=== PATIENT | male | born 1945 | race Caucasian/White ===

== ENCOUNTER 2018-08-25 10:05 | Emergency (ER) | payer BC, MEDICARE ==
[~2018-08-25] VITALS: Ht 182.9 cm; Wt 91.6 kg
[~2018-08-25 10:05] MED LIST: ASPIRIN81 M3 PO; Z COREG PO; Z.0.EFFIENT10 MG PO; Z.0.LIPITOR40 MG PO; Z.0.LISINOPRIL5 MG PO; Z.0.TYLENOL PM EX-1 PO
[2018-08-25] MEDS ORDERED: ALBUTEROL/IPRATROPIUM 3 ML NEB NEB ONE (10:30)
--- NOTE | 2018-08-25 10:38 | Diagnostic Imaging Report ---
EXAMINATION: PA and lateral views of the chest. COMPARISON: None CLINICAL HISTORY: Flulike symptoms DISCUSSION: Lines/tubes: None. Lungs: Lingular opacity likely atelectasis. No consolidative pneumonia. Pleura: No pleural effusion or pneumothorax. Heart and mediastinum: The cardiomediastinal silhouette is normal. Bones and soft tissues: No acute bony abnormalities. IMPRESSION: No consolidative pneumonia Signed by: Dr. Leif Chambers M.D. on 08/25/2018 10:34 AM
== END 2018-08-25 11:00 | disposition home or self-care (01) ==
LOC: FSED 10:05
DX: R05 Cough (principal); J20.9 Acute bronchitis, unspecified; J30.2 Other seasonal allergic rhinitis; I10 Essential (primary) hypertension
CPT/HCPCS: 71046; 99284

== ENCOUNTER 2018-12-19 13:44 | Inpatient (IN) | payer MEDICARE ==
[~2018-12-19] VITALS: Ht 182.9 cm; Wt 91.9 kg
--- OUTSIDE RECORDS SUMMARY | 2018-12-19 13:48 | XMS REPORT ---
Author [facility] Address Unknown Phone Unavailable Care Team Providers Care Resident Care Assistant Name Role Phone Carter KENNEDY Unavailable Unavailable Problems This patient has no known problems. Allergies, Adverse Reactions, Alerts This patient has no known allergies or adverse reactions. Medications This patient has no known medications. Results Test Description Test Time Test Comments Text Results Atomic Results Result Comments [facility] 2018-08-25 10:33:00 [place] [address] Patient Name: DARRION ZUÑIGA MR #: [id number] : 1945 Age/Sex: 72/M Req #: [id number] Adm Physician: Ordered by: LEANNE KENNEDY MD Report #: [id number] Location: [facility] Room/Bed: Procedure: [id number] HOPD/CXR 2 VIEW - [facility] Exam Date: 08/25/18 Exam Time: 1022 REPORT STATUS: Signed EXAMINATION: PA and lateral views of the chest. COMPARISON: None CLINICAL HISTORY: Flulike symptoms DISCUSSION: Lines/tubes: None. Lungs: Lingular opacity likely atelectasis. No consolidative pneumonia. Pleura: No pleural effusion or pneumothorax. Heart and mediastinum: The cardiomediastinal silhouette is normal. Bones and soft tissues: No acute bony abnormalities. IMPRESSION: No consolidative pneumonia Signed by: Dr. Massiel Wheeler M.D. on 08/25/2018 10:34 AM Dictated By: MASSIEL WHEELER MD 1034 Transcribed By: ZEKE on 08/25/18 1034 COPY TO: LEANNE KENNEDY MD
--- OUTSIDE RECORDS SUMMARY | 2018-12-19 13:48 | XMS REPORT | Encounter Summary ---
Author Organization Unknown Address [address] [place] [address] Phone [phone] Care Team Providers Care Piecer Name Role Phone Jimmie Greenwood MD 3 [phone] Zi Cano MD 82 [phone] Reason for Visit upper respiratory symptoms Instructions 1. Immunization refused 2. Body mass index 25-29 - overweight learning about healthy weight 3. Acute bronchitis Levaquin 500 mg tablet Discussion Note: None recorded. Plan of Care Patient Instructions meds as directed continue inh/tessalon perles Reminders Provider Appointments None recorded. Lab None recorded. Referral None recorded. Procedures None recorded. Surgeries None recorded. Imaging None recorded. Medications Name Start Date atorvastatin 40 mg tablet TAKE 1 TABLET BY MOUTH EVERY DAY DIRECTED Bystolic 5 mg tablet Take 1 tablet every day by oral route as directed for 90 days. fluticasone propionate 50 mcg/actuation nasal spray,suspension [place] 2 sprays every day by nasal route. Levaquin 500 mg tablet Take 1 tablet every 24 hours by oral route. prednisone 20 mg tablet Take 1 tablet every day by oral route. ProAir HFA 90 mcg/actuation aerosol inhaler Inhale 2 puffs every day by inhalation route as needed for 16 days. SB Low Dose ASA EC 81 mg tablet,delayed release Take 1 tablet every day by oral route. Medications Administered None recorded. Vitals Height Weight BMI Blood Pressure 6 ft 202.6 lbs 27.5 kg/m2 138/88 mm[Hg] Lab Results None recorded. Allergies Code Code System Name Reaction Severity Status Onset NKDA Problems Name Status Onset Date Source Hyperlipidemia Active 01/02/2017 Benign Essential Hypertension Active 01/02/2017 History of Myocardial Infarction Active 01/02/2017 Procedures Date Name Performed by 10/27/2011 Colonoscopy Information not available 10/26/1973 Vasectomy Information not available 05/28/1972 Hernia Repair Information not available 05/28/1958 Appendectomy Information not available Vaccine List Vaccine Type influenza, high dose seasonal 03/06/2017 02/25/2018 influenza, injectable, quadrivalent 05/28/2015 Pneumococcal Conjugate, unspecified formulation 12/01/2011 zoster 01/01/2015 Social History Smoking Status Never Smoker Past Encounters 08/29/2018 Immunization Refused; Body Mass Index 25-29 - Overweight; Acute Bronchitis Jimmie Greenwood MD: [id number] [place] [address], Ph. History of Present Illness Note:f/u acute bronchitis,initial eval 10 d ago at [facility] rx im steroid/z pack
further eval 08/25 rx breathing tx /po prednisone-neg cxr
good response without complete remission,
c/o green mucoid productive cough Review of Systems:ROS as noted in the HPI Review of Systems None recorded. Physical Exam Upper Respiratory Infection Exam Comprehensive Reported By: Patient Constitutional: General Appearance in no acute distress Skin: Inspection and palpation: no rash, no lesions, no ulcer, good turgor, no jaundice Head: Sinuses no tenderness Eyes: Pupils EOM intact, PERRLA, conjunctiva non-injected Ears: Right External auditory canal normal appearance, no obstruction, no erythema, no discharge. Left External auditory canal normal appearance, no obstruction, no erythema, no discharge. Right Tympanic membrane mobile with pneumatic otoscopy, pearly maher, landmarks clear. Left Tympanic membrane: mobile with pneumatic otoscopy, pearly maher, landmarks clear Nose: Nasal Skin: no lesion, no lacerations. Nasal Mucosa normal, pink and moist Oral Cavity/Mouth: Lips, teeth, gums normal lips, normal gums. Oral Mucosa: normal, moist, no lesions. Palate: normal hard palate, normal soft palate. Tongue: normal tongue, no lesion, no edema. Tonsils: normal tonsils, no lesions. Posterior pharynx: normal Lymph Nodes: Cervical no palpable lymph node enlargement, no submandibular adenopathy, no posterior cervical adenopathy, no anterior cervical adenopathy, no supraclavicular adenopathy Neck: Neck symmetrical, trachea midline Lungs: Respiratory effort unlabored. Auscultation breath sounds normal, no wheezing, no rales / crackles, no rhonchi Cardiovascular System: Auscultation regular rate and rhythm, no murmur, no rubs, no gallops. Observation/Palpation of peripheral vascular system no varicosities, carotid pulse normal, no edema
[2018-12-19] MEDS ORDERED: BYSTOLIC10 MG PO (14:04)
[2018-12-19] MEDS ORDERED: SODIUM CHLORIDE 0.9% 500ML 500 ML IV STA (14:07)
[2018-12-19] MEDS ORDERED: ONDANSETRON HCL INJ 2MG/ML 2ML 2 MG/ML VIAL IV ONE (14:15)
[2018-12-19] MEDS ORDERED: MORPHINE SULFATE INJ 4 MG/ML INJ 1ML IV NR (14:15)
[2018-12-19] MEDS ORDERED: IOPAMIDOL 370 MG/ML 200 ML INFUS..BTL INJ ONE (14:15)
[2018-12-19] MEDS ORDERED: FAMOTIDINE 20 MG/2 ML VIAL IV ONE ×2 (14:15→14:23)
[2018-12-19] MEDS ORDERED: DIATRIZOATE MEGL/DIATRIZOA SOD 30 ML BTL PO ONE (14:16)
[2018-12-19] MEDS ORDERED: ONDANSETRON HCL INJ 2MG/ML 2ML 2 MG/ML VIAL ONE (14:23)
[2018-12-19] MEDS ORDERED: SODIUM CHLORIDE 0.9% 500ML 500 ML ONE (14:23)
[2018-12-19] MEDS ORDERED: MORPHINE SULFATE INJ 4 MG/ML INJ 1ML ONE (14:23)
--- NOTE | 2018-12-19 14:30 | NUR ---
Pt became pale and diaphoretic after morphine was administered and his blood pressure dropped to 95/66. Pt felt like he was going to pass out. Pt sitting in chair and oxygen administered. Fluids bolused in and pt feeling better as fluids were administered.
--- NOTE | 2018-12-19 16:29 | Diagnostic Imaging Report ---
CT of the abdomen and pelvis, with contrast, 12/19/2018. History: Upper abdominal pain. Comparison: None available. Technique: Multidetector CT scanning of the abdomen and pelvis was performed from the level of the lung bases to the inferior pubic rami after intravenous and oral administration of contrast. Coronal and sagittal multiplanar reformations were obtained. RADIATION DOSE: Total DLP: 823 mGy*cm Dose modulation, iterative reconstruction, and/or weight based adjustment of the mA/kV was utilized to reduce the radiation dose to as low as reasonably achievable. Discussion: LUNG BASES: There is bibasilar atelectasis. ABDOMEN: A left parapelvic renal cyst is noted. The liver, gallbladder, biliary tree, spleen, pancreas, adrenal glands, and kidneys are otherwise normal. The hepatic vein, portal vein, and splenic vein are patent. The abdominal aorta is within normal limits for size. There are dilatation of the proximal small bowel measuring up to 4.1 cm, with a transition point in the right abdomen, best seen on coronal image 58. The distal small bowel is nondilated. The appendix is not visualized. Multiple diverticuli are present within the descending and sigmoid colon without evidence of adjacent inflammation.. There is no evidence of adenopathy or free fluid. PELVIS: The bladder is unremarkable. The prostate is prominent measuring 5.2 cm in transverse diameter. Calcified phleboliths are present bilaterally. There is no evidence of free fluid or adenopathy. BONES AND SOFT TISSUES: Degenerative changes are present throughout the lumbar spine without evidence of lytic or sclerotic lesion. IMPRESSION: 1. Small bowel obstruction with transition point in the right abdomen, previously secondary to adhesions from prior appendectomy. The findings were discussed with Dr. Rosado at 1625 on 12/19/2018. 2. Colonic diverticulosis without evidence of diverticulitis. Signed by: Gabe Goode on 12/19/2018 4:26 PM
[2018-12-19] MEDS: D5.45%NS/KCL 20MEQ 1,000 ML IV SCH (16:48)
[2018-12-19] MEDS ORDERED: ENALAPRILAT IV INJ 1.25 MG/ML VIAL IV PRN (17:00)
[2018-12-19] MEDS ORDERED: HYDROMORPHONE 1MG/1ML INJ IV PRN (17:00)
[2018-12-19] MEDS ORDERED: PROMETHAZINE 12.5MG/ NACL 0.9% 12.5 MG/50 ML BAG IV PRN (17:00)
[2018-12-19] MEDS ORDERED: DIPHENHYDRAMINE HCL INJ 50 MG/ML VIAL IV PRN (17:00)
[2018-12-19] MEDS: FAMOTIDINE 20 MG/2 ML VIAL IV SCH (17:47)
--- NOTE | 2018-12-19 17:48 | NUR ---
Pt refusing an NG tube until he is admitted to the hospital, pt does not want an NG tube unless it is absolutely necessary.
[2018-12-19] MEDS ORDERED: SODIUM CHLORIDE 0.9% 1000ML 1,000 ML IV STA (18:24)
[2018-12-19] MEDS ORDERED: DIPHENHYDRAMINE HCL INJ 50 MG/ML VIAL ONE (18:28)
[2018-12-19] MEDS ORDERED: SODIUM CHLORIDE 0.9% 1000ML 1,000 ML ONE (18:29)
[2018-12-19] MEDS ORDERED: FENTANYL CITRATE/PF 100MCG/2 ML INJ IV ONE (18:30)
--- NOTE | 2018-12-19 18:58 | NUR ---
report to RAMOS Kathleen
--- NOTE | 2018-12-19 20:05 | NUR ---
REPORT CALLED TO ELIN VICKERS B/P 157/100 HR 59 SPO2 100% PT DENIES AIN, NS INFUSING AT 125 CC/HR.
--- NOTE | 2018-12-19 20:20 | NUR ---
report given to EMS, pt statble at time of transfer.
[2018-12-19 21:00] VITALS: BP 173/85
[2018-12-19] MEDS: SODIUM CHLORIDE 0.9% 250ML IRRIG IR SCH (21:00)
--- NOTE | 2018-12-19 21:30 | NUR ---
Pt received from ER. Pt A&O and in no apparent distress. Pt on room air and no tele. All safety measures ensured and pt call [facility] near.
[2018-12-19 21:45] VITALS: BP 173/85
--- NOTE | 2018-12-19 21:50 | NUR ---
Dr. Dilip lópez
[2018-12-19] MEDS ORDERED: SODIUM CHLORIDE 0.9% 1000ML 1,000 ML IV ONE (22:15)
[2018-12-20] VITALS (8 sets, daily range): BP systolic 121–137; BP diastolic 67–79
[2018-12-20] MEDS: D5.45%NS/KCL 20MEQ 1,000 ML IV SCH ×3 (00:48→16:36)
[2018-12-20] MEDS: SODIUM CHLORIDE 0.9% 250ML IRRIG IR SCH ×5 (01:00→16:36)
[2018-12-20 05:04] LABS: BASOPHILS % 0.3 % (0.0-1.0); EOSINOPHILS # (AUTO) 0.1 (0.0-0.4); EOSINOPHILS % 1.1 % (0.0-6.0); HEMATOCRIT 46.8 % (38.2-49.6); HEMOGLOBIN 16.2 g/dL (14.0-18.0); LYMPHOCYTES # (AUTO) 1.3 (1.0-3.2); LYMPHOCYTES % 11.5 % (18.0-39.1); MEAN CORPUSCULAR HEMOGLOBIN 31.4 pg (28-32); MEAN CORPUSCULAR HGB CONC 34.6 g/dL (31-35); MEAN CORPUSCULAR VOLUME 90.7 fL (81-99); MONOCYTES # (AUTO) 1.1 (0.2-0.8); MONOCYTES % 9.3 % (4.4-11.3); NEUTROPHILS # (AUTO) 8.8 (2.1-6.9); NEUTROPHILS % 77.4 % (38.7-80.0); PLATELET COUNT 138 x10e3/uL (140-360); RED BLOOD COUNT 5.16 x10e6/uL (4.3-5.7); RED CELL DISTRIBUTION WIDTH 12.5 % (11.7-14.4)
[2018-12-20 05:37] LABS: ANION GAP 13.1 mmol/L (8-16); BLOOD UREA NITROGEN 16 mg/dL (7-26); BUN/CREATININE RATIO 21 (6-25); CALCIUM 8.9 mg/dL (8.4-10.2); CARBON DIOXIDE 22 mmol/L (22-29); CHLORIDE 109 mmol/L (98-107); CREATININE, SERUM 0.77 mg/dL (0.72-1.25); EST GLOMERULAR FILTRATION RATE > 60 ML/MIN (60-); GLUCOSE 117 mg/dL (74-118); POTASSIUM 4.1 mmol/L (3.5-5.1); SODIUM 140 mmol/L (136-145)
--- NOTE | 2018-12-20 06:21 | NUR ---
Call placed to Dr. Cano's office for consult. Dr. Osborne covering and informed MD of consult.
--- NOTE | 2018-12-20 07:00 | NUR ---
BEDSIDE SHIFT REPORT RECEIVED FROM ALEE BEASLEY. PT DENIES NEEDS AT THIS TIME.
--- NOTE | 2018-12-20 07:39 | NUR ---
Bedside report and walking rounds complete with day shift RN
[2018-12-20 08:00] LABS: LYMPHOCYTES % (MANUAL) 12 % (19-48); MONOCYTES % (MANUAL) 10 % (3.4-9.0); NEUTROPHILS % (MANUAL) 78 % (40-74); PLATELET ESTIMATE SLIGHTLY DECREASED; PLATELET MORPHOLOGY COMMENT FEW EDTA CLUMPING; RBC MORPHOLOGY COMMENT NORMAL
--- NOTE | 2018-12-20 08:52 | Diagnostic Imaging Report ---
EXAMINATION: ABDOMEN ACUTE SERIES W/PA CXR INDICATION: Small bowel obstruction COMPARISON: CT abdomen and pelvis of 12/19/2018 FINDINGS: TUBES and LINES: None. LUNGS: The lung volumes are normal. No focal consolidation or pulmonary edema. Mild subsegmental atelectasis at the left mid lung. PLEURA: No pleural effusion or pneumothorax. HEART AND MEDIASTINUM: The cardiomediastinal silhouette is normal in size and contour. BONES AND SOFT TISSUES: No acute fracture or dislocation. UPPER ABDOMEN: Again seen are multiple loops of air-filled dilated small bowel measuring up to 4.6 cm in diameter. There are now also air-filled loops of nondilated colon, which was decompressed on the prior CT. No free air. No abnormal calcifications. Degenerative changes of the visualized spine. IMPRESSION: Redemonstration of multiple loops of air-filled dilated small bowel measuring up to 4.6 cm consistent with known small bowel obstruction seen on 12/19/2018. There is now air in the colon and rectum which were previously decompressed. Signed by: India Henderson MD on 12/20/2018 8:49 AM
[2018-12-20] MEDS: FAMOTIDINE 20 MG/2 ML VIAL IV SCH ×2 (09:15→16:37)
--- NOTE | 2018-12-20 13:44 | History and Physical ---
CHIEF COMPLAINT: The patient is a 73-year-old male with a history of pain in the abdomen. HISTORY OF PRESENTING ILLNESS: This is Mr. Leonel Zuñiga, who has a history of extensive surgery in the abdomen, started to have upper abdominal pain and also periumbilical pain. The pain was described as 10/10, suddenly after eating at a local restaurant, the patient thought he had food poisoning and cramping got worse, abdominal pain got worse. The patient came into the ED, was found to have a questionable SBO and admitted for small-bowel obstruction. PAST SURGICAL HISTORY: History of double hernia repairs, two times appendectomy in the past. Heart catheterization and prior abdominal surgeries as noted. PAST MEDICAL HISTORY: Include history of coronary artery disease, history of hypertension, history of hyperlipidemia and history of ND in the past, seen by Dr. Cano. ALLERGIES: NO DRUG ALLERGIES. SOCIAL HISTORY: No EtOH. No IV drug abuse. 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 FAMILY HISTORY: Noncontributory. MEDICATIONS: He takes at home are acetaminophen, aspirin, atorvastatin 40 mg, nebivolol 10 mg and Effient 10 mg daily. PHYSICAL EXAMINATION: HEENT: Normocephalic, atraumatic. Pupils are reactive to light and accommodation. CVS: S1 and S2 normal. Regular rate and rhythm. ABDOMEN: Nontender, nondistended. Bowel sounds are positive. EXTREMITIES: No clubbing, no cyanosis, no edema. LABORATORY VALUES: White count is slightly elevated at 11.31. No left shift present. Chemistry; sodium 140, potassium 4.1, BUN 16, creatinine 0.77. IMAGING STUDIES: Abdominal CT shows small bowel obstruction with transition point at the right abdomen, colonic diverticulosis without evidence of diverticulitis. ASSESSMENT: Small-bowel obstruction. The patient seems to be better today. No NG tube has been advanced. The patient is n.p.o. The patient is to be continued n.p.o. KUB will be done today. Labs to be followed. The patient is having a bowel movement already, feeling better. Possible discharge tonight or in the morning. Further recommendation per clinical course. Dr. Bautista Marie has already seen the patient. Additional diagnoses include history of ND, history of coronary artery disease, history of hyperlipidemia. We will hold off on medications until the patient's bowel sounds are better and after KUB. Further recommendation per clinical course. MD EVERETT Metzger/JOCELYNE /[id number]
--- NOTE | 2018-12-20 20:12 | Consultation ---
DATE OF CONSULTATION: Cardiology Consultation HISTORY OF PRESENT ILLNESS: This is a 73-year-old man with a history of coronary artery disease, status post myocardial infarction and intervention, hypertension, hyperlipidemia, who presented to the emergency department with abdominal pain. The patient states that it was in the central near his umbilicus, described as cramping, severe in intensity, occurred after eating. The patient arrived to the emergency department, was found to have possible small-bowel obstruction. We have been consulted for possible surgical intervention. He denies any chest pain, shortness of breath, palpitations, or near syncope. REVIEW OF SYSTEMS: A 12-point review of system was conducted, and is negative except as stated above in the HPI. PAST SURGICAL HISTORY: Hernia repair, appendectomy, cardiac catheterization. PAST MEDICAL HISTORY: Coronary artery disease, myocardial infarction. PAST FAMILY HISTORY: No premature CAD or sudden cardiac . ALLERGIES: NO DRUG ALLERGIES. SOCIAL HISTORY: No illicit drug, alcohol, or tobacco use. FAMILY HISTORY: Noncontributory as stated above. MEDICATIONS: See medications reconciliation form. PHYSICAL EXAMINATION: VITAL SIGNS: Temperature is 96, heart rate is 86, respirations 19, blood pressure is 121/74, oxygen saturation 98% on room air. GENERAL: Well appearing, well built, no apparent distress. CARDIOVASCULAR: Regular rate and rhythm. LUNGS: Clear to auscultation. ABDOMEN: Soft, nontender, nondistended. EXTREMITIES: No edema. VASCULAR : 2+ pulses. SKIN: Warm, dry and intact. NEUROLOGIC: No focal deficits noted. Cranial nerves are grossly intact. PSYCHIATRIC: Normal mood and affect. LABORATORY DATA: Reviewed. Recent testing in our clinic within normal limits, normal ejection fraction. IMPRESSION: 1. Possible small bowel obstruction. 2. Hypertension. 3. Coronary artery disease. 4. Hyperlipidemia. RECOMMENDATIONS: The patient is currently asymptomatic from a cardiovascular standpoint. Recent testing within our clinic was within normal limits. Continue home cardiovascular medications when he can take oral medications. If any surgical intervention is needed, he may proceed. DO SHAYE Montenegro/MODL /[id number]
[2018-12-20] MEDS: NEBIVOLOL 10 MG TAB PO SCH (20:42)
[2018-12-21 00:21] VITALS: BP 149/78
[2018-12-21] MEDS: D5.45%NS/KCL 20MEQ 1,000 ML IV SCH ×2 (01:31→08:48)
[2018-12-21 04:14] VITALS: BP 116/70
[2018-12-21 05:25] LABS: BASOPHILS % 0.2 % (0.0-1.0); EOSINOPHILS # (AUTO) 0.2 (0.0-0.4); EOSINOPHILS % 2.2 % (0.0-6.0); HEMATOCRIT 45.8 % (38.2-49.6); HEMOGLOBIN 15.5 g/dL (14.0-18.0); LYMPHOCYTES # (AUTO) 0.9 (1.0-3.2); LYMPHOCYTES % 8.9 % (18.0-39.1); MEAN CORPUSCULAR HGB CONC 33.8 g/dL (31-35); MEAN CORPUSCULAR VOLUME 91.6 fL (81-99); MONOCYTES # (AUTO) 0.9 (0.2-0.8); MONOCYTES % 9.5 % (4.4-11.3); NEUTROPHILS # (AUTO) 7.6 (2.1-6.9); PLATELET COUNT 137 x10e3/uL (140-360); RED CELL DISTRIBUTION WIDTH 12.4 % (11.7-14.4)
--- NOTE | 2018-12-21 07:00 | Diagnostic Imaging Report ---
EXAM: Abdomen 4 radiographs INDICATION: ^sbo ^[id number] ^[id number] COMPARISON: Abdominal x-ray dated 12/20/2018 FINDINGS: Persistent obstructive bowel gas pattern. No definite evidence of pneumoperitoneum. Lungs are clear. No focal consolidation. Normal cardiac silhouette. No pleural effusion or pneumothorax. No acute osseous abnormality. Pelvic phleboliths. IMPRESSION: Persistent obstructive bowel gas pattern. Signed by: Dr. Дмитрий Barnes MD on 12/21/2018 6:57 AM
--- NOTE | 2018-12-21 07:10 | NUR ---
RCD PT AT BED PT IS ALERT AND ORIENTED RESTING ON BED NO SIGNS OF ANY DISTRESS NOTED IV PATENT FAMILY AT BED SIDE BED LOW AND LOCKED CALL LIGHT IN REACH
--- NOTE | 2018-12-21 07:38 | Progress Note ---
DATE: SUBJECTIVE: The patient comes in with small bowel obstruction, asymptomatic at this time, tolerated clear liquid twice. No chest pains. No shortness of breath. Positive for gas. No BMs. OBJECTIVE: VITAL SIGNS: Temperature is 98.0, pulse of 84, respirations of 16, blood pressure is 116/70, pulse oximetry of 97% on room air. HEENT: Normocephalic, atraumatic. Pupils are reactive to light and accommodation. CVS: S1, S2 normal. Regular rate and rhythm. ABDOMEN: Positive for bowel sounds. Nondistended, nontender. EXTREMITIES: No clubbing, no cyanosis, no edema. IMAGING STUDIES: From yesterday did show some multiple loops of air-filled dilated small bowel measuring up to 4.6, consistent with small bowel obstruction. ASSESSMENT AND PLAN: The patient, however, is asymptomatic awaiting a small-bowel series today with a progression of his symptoms and also feeling better. Possible discharge today depending upon the abdominal series today. Further recommendation per clinical course. We will continue to monitor the patient. Other diagnosis include coronary artery disease, history of myocardial infarction and history of hypertension and hyperlipidemia. We will continue with medications at this time. MD EVERETT Metzger/MODL /[id number]
[2018-12-21 08:01] VITALS: BP 125/76
[2018-12-21 09:00] VITALS: BP 125/76
[2018-12-21] MEDS: NEBIVOLOL 10 MG TAB PO SCH (09:00)
[2018-12-21] MEDS: FAMOTIDINE 20 MG/2 ML VIAL IV SCH (09:00)
--- NOTE | 2018-12-21 11:00 | NUR ---
PT REQUESTED TO EAT PAGED DR GUZMAN GET THE DIET ORDER
--- NOTE | 2018-12-21 11:40 | NUR ---
DR GUZMAN RETURNED THE CALL HE SAID HE COMING TO SEE THE PT
[2018-12-21] MEDS ORDERED: CIPRO500 MG PO (13:39)
--- NOTE | 2018-12-21 14:03 | NUR ---
PT WENT HOME IN SAFE CONDITION WITH HIS
== END 2018-12-21 14:03 | disposition home or self-care (01) | DRG 390 ==
LOC: FSED 13:44 → ERHOLD 16:52 → CMPBEDREQ 20:23 → MED/SURG2 20:37
PROVIDERS: ADMIT Family Medicine; ATTEND Family Medicine
PROC: 0D9670Z Drainage of Stomach with Drainage Device, Via Natural or Artificial Opening (ICD-10-PCS; principal; 2018-12-19)
DX: K56.50 Intestinal adhesions [bands], unspecified as to partial versus complete obstruction (principal); I25.10 Atherosclerotic heart disease of native coronary artery without angina pectoris; I10 Essential (primary) hypertension; E78.5 Hyperlipidemia, unspecified; I25.2 Old myocardial infarction; Z79.02 Long term (current) use of antithrombotics/antiplatelets; Z79.82 Long term (current) use of aspirin
CPT/HCPCS: 36415; 74022; 74177; 80048; 80076; 81003; 85025; 96374; 96375; 99282; J1170; J1200; J2270; J2405; J3010; J7030; J7040; Q9967

== ENCOUNTER → 2019-11-07 | Day surgery (SDC) | payer MEDICARE, OTHER ==
[2019-11-03 10:22] LABS: BASOPHILS % 0.4 % (0.0-1.0); EOSINOPHILS # (AUTO) 0.2 (0.0-0.4); EOSINOPHILS % 2.5 % (0.0-6.0); HEMATOCRIT 46.6 % (38.2-49.6); HEMOGLOBIN 15.9 g/dL (14.0-18.0); LYMPHOCYTES % 25.1 % (18.0-39.1); MEAN CORPUSCULAR HEMOGLOBIN 30.9 pg (28-32); MEAN CORPUSCULAR HGB CONC 34.1 g/dL (31-35); MEAN CORPUSCULAR VOLUME 90.5 fL (81-99); MONOCYTES # (AUTO) 0.7 (0.2-0.8); MONOCYTES % 8.7 % (4.4-11.3); NEUTROPHILS # (AUTO) 5.1 (2.1-6.9); NEUTROPHILS % 62.9 % (38.7-80.0); PLATELET COUNT 144 x10e3/uL (140-360); RED BLOOD COUNT 5.15 x10e6/uL (4.3-5.7); RED CELL DISTRIBUTION WIDTH 12.6 % (11.7-14.4)
[2019-11-03 10:44] LABS: ALANINE AMINOTRANSFERASE 37 IU/L (0-55); ALBUMIN 4.1 g/dL (3.5-5.0); ALBUMIN/GLOBULIN RATIO 1.5 (0.8-2.0); ALKALINE PHOSPHATASE 99 IU/L (40-150); ANION GAP 12.7 mmol/L (8-16); BLOOD UREA NITROGEN 14 mg/dL (7-26); BUN/CREATININE RATIO 15 (6-25); CALCIUM 9.4 mg/dL (8.4-10.2); CARBON DIOXIDE 23 mmol/L (22-29); CHLORIDE 111 mmol/L (98-107); CREATININE, SERUM 0.96 mg/dL (0.72-1.25); EST GLOMERULAR FILTRATION RATE > 60 ML/MIN (60-); GLUCOSE 104 mg/dL (74-118); POTASSIUM 4.7 mmol/L (3.5-5.1); SODIUM 142 mmol/L (136-145)
[~2019-11-07] VITALS: Ht 182.9 cm; Wt 91.6 kg
[~2019-11-07] MED LIST changes: +ACETAMINOPHEN1 EACH PO; +ALPRAZOLAM 0.5 MG TAB ONE; +BYSTOLIC10 MG PO; +CIPRO500 MG PO; +DIPHENHYDRAMINE HCL 25 MG CAP ONE; +FENTANYL CITRATE/PF 100MCG/2 ML INJ ONE; +HEPARIN SOD/SOD CHLORIDE 1,000 ML ONE; +IOPAMIDOL 370 MG/ML 200 ML INFUS..BTL INJ ONE; +LIDOCAINE HCL 2% LOCAL 20 ML VIAL ONE; +MIDAZOLAM HCL 2 MG/2 ML VIAL ONE; +SODIUM CHLORIDE 0.9% 1000ML 1,000 ML ONE
[2019-11-07 09:45] VITALS: BP 143/80
--- NOTE | 2019-11-07 12:00 | NUR ---
1200pt in CCL Rm #9, prepped for procedure. Alert oriented and appropriate, PERRLA, respirations even and unlabored to room air. Pulses x4 extremities equal Pedal pulses PT/DP Rt PT doppler all other palpable and marked. Cap fill brisk < 3 sec. bilateral feet semi cool and pale. Skin warm and dry integrity appears intact in general. IV left forarm x1 started and presents healthy w/o s/s of infiltration or complaint. Abdomen soft and supple. pt offered toileting, denies need to urinate or defecate. Personal affects with patient. Family at bedside. Pt and family verbalizes understanding of POC. Pre-Op Meds benadryl and xanax given at 1335 bed low and locked, side rails up x2 and call light at side. -naa/rn
--- NOTE | 2019-11-07 13:00 | NUR ---
1300 Prepped and ready Handoff report Demarcus BEASLEY ds/rn
--- NOTE | 2019-11-07 14:50 | NUR ---
1450p UNDERWRITING ASSISTANT POST RECEIVING NOTE:Received pt to room #9,bedside report received from Fitz BEASLEY. Alert oriented and appropriate, PERRLA, respirations even and unlabored to room air. Pulses x4 extremities equal and strong. Pedal pulses PT/DP X4 and marked. Cap fill brisk < 3 sec. Rt radial approach with TR band No gross issues pain,pallor, pressure or dysrhythmia.Decrease TR band at 1530p dc home at 1600pm. Skin warm and dry integrity appears D/I. IV 20g to left forearm #20x1 . Presents healthy w/o s/s of infiltration or complaint. Abdomen soft and supple. pt offered toileting, denies need to urinate or defecate. No personal affects with patient. Family at BS. Pt and family verbalizes understanding of POC. Currently w/o complaint of pain or need.ds/rn
[2019-11-07 14:52] VITALS: BP 120/73
[2019-11-07 15:00] VITALS: BP 110/72
[2019-11-07 15:15] VITALS: BP 114/77
[2019-11-07 15:30] VITALS: BP 114/77
--- NOTE | 2019-11-07 15:30 | NUR ---
1530 RADIAL Compression removal: Initial Cuff volume 15 cc 1530p -5cc Removed No hematoma/bleeding noted with normal neurovascular function. 1545p -5cc Removed No hematoma/ bleeding noted with normal neurovascular function. 1600p -5cc Removed No hematoma/bleeding noted with normal neurovascular function. Air removal completed. Stasis achieved sterile 2x2,Tegaderm, Coban dressing No hematoma, bleeding noted with normal neurovascular function. Wrist splint in place. Pt instructed on POC. Ds/Rn
[2019-11-07 16:00] VITALS: BP 119/77
--- NOTE | 2019-11-07 16:00 | NUR ---
1600pm Pt meets DC criteria. Rt TR band site assessed for s/s of complication and presence of hematoma. Skin warm, dry, no discolor, and pulses present. IV removed from left forearm. Distal tip appears intact. VS WNL. Pt denies pain, sob, or need at this time. Family at BS. Review of discharge paperwork and follow up instructions. verbalized understanding. Pt to wheelchair and transported to front of hospital. Transferred to private vehicle under own strength w/o incident with DC paperwork in hand. - ds/rn
--- NOTE | 2019-11-07 21:15 | Operative Report ---
DATE OF PROCEDURE: 11/07/2019 SURGEON: Zi Cano MD INDICATION: Coronary artery disease, abnormal stress test, angina. PROCEDURES PERFORMED: 1. Left heart catheterization, selective coronary angiography. 2. Deployment of right wrist TR band. 3. Conscious sedation administration, hemodynamic, neurological monitoring and recovery by logging rafter laborer RN, supervision by , 35 minute. COMPLICATIONS: None. BLOOD LOSS: Minimal. RECOMMENDATIONS: Medical therapy. DESCRIPTION OF PROCEDURE: Access obtained in the right radial artery. A 5-[place] Island[place] sheath was placed. Coronary angiography demonstrated mild disease in the left main coronary artery. Circumflex and right coronary arteries had mild 20% to 30% stenosis stent in the left anterior descending artery was widely patent. Diagonal artery was small 1.5 mm vessel with 60 to 70% stenosis. Left anterior descending artery, mid and distal vessel, who had diffuse 30% to 50% stenosis. LV end-diastolic pressure was normal. No intervention deemed necessary. Wire and sheath were removed. TR band applied. The patient discharged home same day. Zi Cano MD [facility]/MODL /[id number]
== END | disposition home or self-care (01) ==
LOC: CATH LAB 16:26
PROVIDERS: ATTEND Internal Medicine Interventional Cardiology
DX: I25.119 Atherosclerotic heart disease of native coronary artery with unspecified angina pectoris (principal); I25.2 Old myocardial infarction; I10 Essential (primary) hypertension; R94.39 Abnormal result of other cardiovascular function study; Z01.812 Encounter for preprocedural laboratory examination; Z11.59 Encounter for screening for other viral diseases; Z79.82 Long term (current) use of aspirin
CPT/HCPCS: 36415; 80053; 85025; 87635; 93454; C1769; C1887; J2001; J2250; J3010; J7030; Q9967; 99152

== ENCOUNTER 2021-05-11 12:13 | Emergency (ER) | payer MEDICARE ==
[~2021-05-11] VITALS: Ht 182.9 cm; Wt 90.7 kg
[~2021-05-11 12:13] MED LIST changes: -ALPRAZOLAM 0.5 MG TAB ONE; -DIPHENHYDRAMINE HCL 25 MG CAP ONE; -FENTANYL CITRATE/PF 100MCG/2 ML INJ ONE; -HEPARIN SOD/SOD CHLORIDE 1,000 ML ONE; -IOPAMIDOL 370 MG/ML 200 ML INFUS..BTL INJ ONE; -LIDOCAINE HCL 2% LOCAL 20 ML VIAL ONE; -MIDAZOLAM HCL 2 MG/2 ML VIAL ONE; -SODIUM CHLORIDE 0.9% 1000ML 1,000 ML ONE
== END 2021-05-11 13:03 | disposition home or self-care (01) ==
LOC: FSED 12:23
DX: E86.9 Volume depletion, unspecified (principal); E86.0 Dehydration; D69.6 Thrombocytopenia, unspecified; E86.1 Hypovolemia
CPT/HCPCS: 80053; 82553; 84484; 85025; 93005; 99283

== ENCOUNTER 2024-06-06 07:42 | Emergency (ER) | payer MEDICARE ==
[~2024-06-06] VITALS: Ht 182.9 cm; Wt 93.2 kg
[2024-06-06 07:45] VITALS: PULSE 55; RESP 18; TEMP 96.9
[2024-06-06] MEDS ORDERED: CODEINE-GUAIFE120 ML PO (10:15)
[2024-06-06 10:34] VITALS: BP 129/72; PULSE 52; RESP 16; TEMP 97.3; O2SAT 97
== END 2024-06-06 10:33 | disposition home or self-care (01) ==
LOC: FSED 07:47
DX: R05.9 Cough, unspecified (principal); J06.9 Acute upper respiratory infection, unspecified; I10 Essential (primary) hypertension; E78.5 Hyperlipidemia, unspecified; R94.31 Abnormal electrocardiogram [ECG] [EKG]; I25.2 Old myocardial infarction
CPT/HCPCS: 71046; 80053; 83880; 85025; 93005; 99284

== ENCOUNTER 2025-03-15 18:36 | Inpatient (IN) | payer MEDICARE ==
[~2025-03-15] VITALS: Ht 182.9 cm; Wt 88.7 kg
[2025-03-15 18:36] VITALS: TEMP 98.6
[~2025-03-15 18:36] MED LIST changes: +CODEINE-GUAIFE120 ML PO
[2025-03-15 18:47] LABS: BASOPHILS % 0.5 % (0.0-1.0); EOSINOPHILS % 2.1 % (0.0-6.0); LYMPHOCYTES % 27.3 % (18.0-39.1); MONOCYTES % 9.7 % (4.4-11.3); NEUTROPHILS % 60.1 % (38.7-80.0); RED CELL DISTRIBUTION WIDTH 12.2 % (11.7-14.4)
[2025-03-15] MEDS ORDERED: ASPIRIN 81 MG CHEW TAB ONE (18:58)
[2025-03-15] MEDS: SODIUM CHLORIDE FLUSH 10 ML SYR IV PRN (19:09)
[2025-03-15] MEDS: NITROGLYCERIN 2% OINT 1 GM PKT TOP ONE (19:09)
[2025-03-15 19:12] LABS: EST GLOMERULAR FILTRATION RATE 81.0 ML/MIN (>=60)
[2025-03-15] MEDS: ASPIRIN 81 MG CHEW TAB PO ONE (19:23)
[2025-03-15] MEDS: ASPIRIN 81 MG CHEW TAB ONE (19:28)
[2025-03-15] MEDS ORDERED: SODIUM CHLORIDE FLUSH 10 ML SYR INJ PRN (22:00)
[2025-03-15] MEDS ORDERED: ONDANSETRON HCL INJ 2MG/ML 2ML 2 MG/ML VIAL IV PRN (22:00)
[2025-03-15 22:53] VITALS: PULSE 71; RESP 17
[2025-03-15] MEDS ORDERED: LISINOPRIL10 MG PO (23:40)
[2025-03-15] MEDS ORDERED: AMBIEN5 MG PO (23:41)
[2025-03-16] VITALS (9 sets, daily range): BP systolic 102–138; BP diastolic 72–85; PULSE 55–69; RESP 16–19; TEMP 97–97.7; O2SAT 95–100
[2025-03-16 05:27] LABS: BASOPHILS % 0.4 % (0.0-1.0); EOSINOPHILS % 1.8 % (0.0-6.0); LYMPHOCYTES % 25.9 % (18.0-39.1); MONOCYTES % 8.8 % (4.4-11.3); NEUTROPHILS % 62.8 % (38.7-80.0); RED CELL DISTRIBUTION WIDTH 12.3 % (11.7-14.4)
[2025-03-16 05:57] LABS: EST GLOMERULAR FILTRATION RATE 78.0 ML/MIN (>=60)
[2025-03-16] MEDS: ZOLPIDEM TARTRATE 5 MG TAB PO SCH (21:32)
[2025-03-16] MEDS: ASPIRIN 81 MG ENTERIC COATED PO SCH (22:45)
[2025-03-16] MEDS ORDERED: ACETAMINOPHEN 325 MG TAB PO PRN (22:45)
[2025-03-16] MEDS: LISINOPRIL 10 MG TAB PO SCH (22:45)
[2025-03-16] MEDS: ATORVASTATIN 40 MG TAB PO SCH (22:45)
[2025-03-17] VITALS (18 sets, daily range): BP systolic 99–128; BP diastolic 57–89; PULSE 61–133; RESP 12–21; TEMP 96.8–99; O2SAT 97–100
[2025-03-17 05:20] LABS: BASOPHILS % 0.4 % (0.0-1.0); EOSINOPHILS % 1.7 % (0.0-6.0); LYMPHOCYTES % 22.1 % (18.0-39.1); MONOCYTES % 8.1 % (4.4-11.3); NEUTROPHILS % 67.5 % (38.7-80.0); RED CELL DISTRIBUTION WIDTH 12.4 % (11.7-14.4)
[2025-03-17 05:41] LABS: EST GLOMERULAR FILTRATION RATE 74.0 ML/MIN (>=60)
[2025-03-17 06:07] LABS: CHOL/HDL RATIO 3.6 (3.9-4.7); LDL CHOLESTEROL 59.0 MG/DL (60-130)
[2025-03-17] MEDS: LORATADINE 10 MG TAB PO SCH (09:54)
[2025-03-17] MEDS ORDERED: IOPAMIDOL 370 MG/ML 100 ML INFUS..BTL INJ ONE (14:24)
[2025-03-17] MEDS ORDERED: LIDOCAINE HCL 1% LOCAL INJ 20 ML VIAL ONE (14:24)
[2025-03-17] MEDS ORDERED: HEPARIN SOD/SOD CHLORIDE 2,000 ML ONE ×2 (14:24→14:33)
[2025-03-17] MEDS ORDERED: LIDOCAINE HCL 2% LOCAL 20 ML VIAL ONE (14:33)
[2025-03-17] MEDS ORDERED: SODIUM CHLORIDE 0.9% 1000ML 1,000 ML ONE (14:33)
[2025-03-17] MEDS ORDERED: FENTANYL CITRATE/PF 100MCG/2 ML INJ ONE (14:41)
[2025-03-17] MEDS ORDERED: MIDAZOLAM HCL 2 MG/2 ML VIAL ONE (14:41)
[2025-03-18] VITALS: BP 118/72; PULSE 61; RESP 18; TEMP 97.7; O2SAT 100
[2025-03-18 04:56] VITALS: BP 116/75; PULSE 60; RESP 16; TEMP 97.9; O2SAT 100
[2025-03-18] MEDS ORDERED: IOPAMIDOL 370 MG/ML 100 ML INFUS..BTL INJ ONE (06:06)
[2025-03-18 08:00] VITALS: BP 120/89; PULSE 59; RESP 19; TEMP 97.6; O2SAT 99
[2025-03-18 09:29] VITALS: BP 122/89; PULSE 59; RESP 19; TEMP 97.6; O2SAT 99
== END 2025-03-18 10:00 | disposition home or self-care (01) | DRG 287 ==
LOC: ER 18:44 → ERHOLD 21:55 → MED/SURG2 23:23 → OBSVTOIN 03-17 15:53
PROVIDERS: ADMIT Internal Medicine; ATTEND Internal Medicine
PROC: 4A023N7 Measurement of Cardiac Sampling and Pressure, Left Heart, Percutaneous Approach (ICD-10-PCS; principal; 2025-03-17)
PROC: B2111ZZ Fluoroscopy of Multiple Coronary Arteries using Low Osmolar Contrast (ICD-10-PCS; 2025-03-17)
DX: I25.119 Atherosclerotic heart disease of native coronary artery with unspecified angina pectoris (principal); I16.0 Hypertensive urgency; I11.9 Hypertensive heart disease without heart failure; E78.5 Hyperlipidemia, unspecified; R94.39 Abnormal result of other cardiovascular function study; G47.00 Insomnia, unspecified; I25.2 Old myocardial infarction; Z95.5 Presence of coronary angioplasty implant and graft; Z79.891 Long term (current) use of opiate analgesic; Z79.82 Long term (current) use of aspirin
CPT/HCPCS: 36415; 71045; 71260; 76937; 80053; 80061; 82550; 83036; 83880; 84484; 85025; 93005; 93306; 93454; 94760; 99152; 99153; 99284; C1769; C1887; G0378; J2003; J2250; J7030; Q9967